=== PATIENT | male | born 1990 | race African-American/Black ===

== ENCOUNTER 2021-08-01 09:16 | Emergency (ER) | payer OTHER, SELFPAY ==
--- NOTE | ~2021-08-01 | XR_ITS ---
XR lumbar spine 2-3V DATE: 08/01/2021 09:44 INDICATION: Low back pain for 2 days. No known injury TECHNIQUE: AP, lateral, coned lateral lumbosacral views COMPARISON: None FINDINGS: The lumbar vertebrae are normally aligned. No fracture or bone destruction. The lumbar pedi cles are intact. Lumbar and lumbosacral interspaces are relatively preserved. The sacroiliac joints a re normal. Due to positioning this examination is not sensitive for detection of primary spinal stenosis. Clinic al correlation is advised. IMPRESSION: No significant abnormality Reviewed, dictated and finalized at location A. IMPRESSION: No significant abnormality
[2021-08-01 09:25] VITALS: BP 147/72; PULSE 69; RESP 18; TEMP 36.6; O2SAT 99
--- NOTE | 2021-08-01 09:30 | ED.BACK ---
HPI - Back Pain/Injury General Chief Complaint: Back Pain/Injury Stated Complaint: back pain Time Seen by Provider: 08/01/21 09:18 History of Present Illness HPI Narrative: 31-year-old male presents the emergency room with complaints of acute onset of low back pain that began 3 days ago. 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 Patient states the pain radiates down into his left leg distally past his knee. Patient denies saddle anesthesia, denies difficulties with his bowel or bladder habits. Describes pain as a sharp stabbing pain that is worse with trunk rotation and trunk bend. Related Data Allergies Allergy/AdvReac Type Severity Reaction Status Date / Time amoxicillin Allergy Hives Verified 08/01/21 09:29 Penicillins Allergy Hives Verified 08/01/21 09:29 Review of Systems Review of Systems: CONSTITUTIONAL: Denies fever, chills, or sweats. EYES: Denies visual changes, redness, or discharge. ENT: Denies rhinorrhea, congestion, sore throat, or otalgia. CARDIOVASCULAR: Denies chest pain, palpitations, or edema. RESPIRATORY: Denies cough or dyspnea. GASTROINTESTINAL: Denies abdominal pain, nausea, vomiting, or diarrhea. GENITOURINARY: Denies dysuria or hematuria. SKIN: Denies rash or itching. MUSCULOSKELETAL: Reports low back pain NEUROLOGIC: Denies headache, numbness, dizziness, or weakness. PSYCHIATRIC: Denies anxiety or depression. Exam Narrative: GENERAL: Well-appearing, well-nourished, and in no acute distress. HEAD: Normocephalic, atraumatic. EYES: PERRLA and EOMI. ENT: Nares clear, no rhinorrhea or epistaxis. Mucous membranes moist. CHEST: Clear to auscultation. No respiratory distress. No wheezes rales or rhonchi HEART: Regular rate and rhythm. No murmur heard. Normal peripheral pulses. EXTREMITIES: Normal range of motion. No edema. BACK: Midline lumbar tenderness, no step-offs, pain with rotation and lateral bend, no obvious bony abnormality SKIN: Warm, dry, no rash. NEURO: No focal deficits. Alert and oriented x3. PSYCH: Normal mood and affect. Course Vital Signs Vital signs: Vital Signs Temperature 36.6 C 08/01/21 09:25 Pulse Rate 69 08/01/21 09:25 Respiratory Rate 18 08/01/21 09:25 Blood Pressure 147/72 H 08/01/21 09:25 Pulse Oximetry 99 08/01/21 09:25 Temperature 36.6 C 08/01/21 09:25 Pulse Rate 69 08/01/21 09:25 Respiratory Rate 18 08/01/21 09:25 Blood Pressure 147/72 H 08/01/21 09:25 Pulse Oximetry 99 08/01/21 09:25 MDM - Back Pain/Injury MDM Narrative Medical decision making narrative: 31-year-old male presented the emergency room with complaints of acute low back pain that started 3 days ago. Patient reports that he frequently lifts heavy objects at work and could be the cause of his pain. Plain films of his lower back were negative for any acute abnormalities. Patient is likely experiencing lumbar strain. Differential Diagnosis Differential diagnosis: Likely lumbar radiculopathy and strain of lumbar region Imaging Data Radiologist's impression: Impressions Lumbar Spine X-Ray 08/01/21 09:44 IMPRESSION: No significant abnormality Discharge Plan Discharge Clinical Impression: Lumbar radiculopathy Strain of lumbar region Qualifiers: Encounter type: initial encounter Qualified Code(s): S39.012A - Strain of muscle, fascia and tendon of lower back, initial encounter Patient Disposition: Home, Self-Care Condition: Stable Instructions: Antibiotic Form Prescriptions: New methocarbamol 750 mg tablet 750 mg PO TID Qty: 21 RF: 0 naproxen 500 mg tablet 500 mg PO BID Qty: 20 RF: 0 Follow-up/Referrals: UNKNOWN,DOCTOR [Primary Care Provider] - Stand Alone Forms: Work/School Release IP Time of Disposition: 10:00
[2021-08-01] MEDS: KETOROLAC (*BKC) 60 MG/2 ML VIAL IM (09:45)
[2021-08-01] MEDS: methocarbamoL 500 MG TABLET PO (09:46)
== END 2021-08-01 10:52 | disposition home or self-care (01) ==
PROVIDERS: Emergency Provider Nurse Practitioner Family
DX: M54.16 Radiculopathy, lumbar region (principal); S39.012A Strain of muscle, fascia and tendon of lower back, initial encounter; X50.0XXA Overexertion from strenuous movement or load, initial encounter
CPT/HCPCS: 72100; 96372; 99283; A9270; J1885